=== PATIENT | male | born 1940 | race Caucasian/White ===

== ENCOUNTER 2022-02-01 07:29 | Day surgery (SDC) | payer MEDICARE ==
[~2022-02-01 07:29] MED LIST: Lactated Ringers 1,000 ML IV SCH; Sodium Chloride 0.9% 10 ML Syringe FLUSH PRN
[2022-02-01] MEDS ORDERED: Propofol 200 MG/20 ML SDV IV ONE (07:30)
[2022-02-01 08:05] VITALS: PULSE 54
[2022-02-01 09:51] VITALS: BP 157/71
== END 2022-02-01 09:45 | disposition home or self-care (01) ==
LOC: FB.SDS 07:29
PROVIDERS: ATTEND Surgery
DX: Z12.11 Encounter for screening for malignant neoplasm of colon (principal); D12.6 Benign neoplasm of colon, unspecified; K57.30 Diverticulosis of large intestine without perforation or abscess without bleeding; Z86.010 Personal history of colon polyps
CPT/HCPCS: 00812-QZ; 88305; J2704; J7120

== ENCOUNTER 2022-02-03 05:35 | Emergency (ER) | payer MEDICARE ==
[2022-02-03] MEDS ORDERED: Sodium Chloride 0.9% 10 ML Syringe FLUSH PRN (05:58)
[2022-02-03] MEDS ORDERED: Ondansetron 4 MG/2 ML SDV IVPUSH STA (06:07)
[2022-02-03] MEDS ORDERED: Morphine 4 MG/ML VIAL IVPUSH STA (06:07)
[2022-02-03] MEDS ORDERED: Sodium Chloride 0.9% 1,000 ML IV SCH ×2 (06:15→08:30)
[2022-02-03] MEDS ORDERED: Iopamidol 755 Mg/ML 100 ML Bottle IV ONE (06:36)
[2022-02-03 06:44] VITALS: PULSE 80
[2022-02-03] MEDS ORDERED: Piperacillin/Tazobactam 4.5 GM in Sodium Chloride 0.9% 100 ML IV STA (08:13)
[2022-02-03 13:47] VITALS: BP 150/80
== END 2022-02-03 13:45 ==
LOC: FB.ED 05:35
DX: K80.10 Calculus of gallbladder with chronic cholecystitis without obstruction (principal); K56.609 Unspecified intestinal obstruction, unspecified as to partial versus complete obstruction; E78.00 Pure hypercholesterolemia, unspecified; M10.9 Gout, unspecified; Z79.899 Other long term (current) drug therapy; Z87.891 Personal history of nicotine dependence; Z20.822 Contact with and (suspected) exposure to COVID-19
CPT/HCPCS: 36415; 74177; 80053; 81001; 82150; 83690; 85025; 96361; 96365; 96375; 99284; 99285-25; J2270; J2405; J2543; J3490; J7030; Q9967; U0002

== ENCOUNTER 2024-02-10 19:59 | Emergency (ER) | payer MEDICARE ==
[2024-02-10 20:14] VITALS: BP 200/101; PULSE 90
[2024-02-10] MEDS: Sodium Phosphate,Monobasic/Sodium Phosphate,Dibasic Enema 133 ML Bottle RECTAL ONE (20:40)
[2024-02-10 21:15] LABS: HEMATOCRIT 40.4 % (38.3-50.1); HEMOGLOBIN 13.3 g/dL (12.9-17.7); MEAN CORPUSCULAR HEMOGLOBIN 30.2 pg (27.0-33.3); MEAN CORPUSCULAR HGB CONC 33.1 g/dL (28.7-35.3); MEAN CORPUSCULAR VOLUME 91.5 fL (80.8-98.7); MEAN PLATELET VOLUME 8.5 fL (6.7-11.0); PLATELET COUNT,PLT 223 x10(3)uL (117-477); RED BLOOD CELL COUNT 4.41 x10(6)uL (3.90-5.90); RED CELL DISTRIBUTION WIDTH 13.7 % (12.4-15.0); WHITE BLOOD CELL COUNT,WBC 18.3 x10-3/uL (3.2-10.1)
[2024-02-10 21:21] LABS: LYMPHOCYTES PERCENT MAN 28 % (13-37); MONOCYTES PERCENT MAN 6 % (4-12); SEG NEUTROPHILS PERCENT MAN 66 % (46-82)
[2024-02-10 21:25] LABS: BLOOD UREA NITROGEN,BUN 17 mg/dL (7-18); BUN/CREATININE RATIO 15.5 (9-20); CALCIUM 9.3 mg/dL (8.6-10.2); CARBON DIOXIDE,CO2 25 mmol/L (21-32); CHLORIDE,CL 106 mmol/L (100-110); CREATININE 1.1 mg/dL (0.70-1.30); EST CRCL DRUG DOSING (CG) 48.41 mL/min; ESTIMATED GFR 67 mL/min (>60); GLUCOSE RANDOM 125 mg/dL (80-116); SODIUM,NA 144 mmol/L (135-145)
[2024-02-10 21:31] LABS: A/G RATIO 1.1; ALANINE AMINOTRANSFERASE,ALT 26 U/L (12-36); ALKALINE PHOSPHATASE 120 IU/L (56-112); ASPARTATE AMNIOTRANSFERASE,AST 20 IU/L (5-25); BILIRUBIN TOTAL 0.6 mg/dL (0.1-1.3); PROTEIN TOTAL,TP 7.6 g/dL (6.0-8.0)
[2024-02-11 00:23] LABS: BILIRUBIN,URINE NEGATIVE (NEGATIVE); GLUCOSE,URINE NORMAL (NORMAL); KETONES,URINE 15 mg/dL (NEGATIVE); LEUKOCYTE ESTERASE,URINE NEGATIVE (NEGATIVE); NITRITE,URINE NEGATIVE (NEGATIVE); OCCULT BLOOD,URINE NEGATIVE (NEGATIVE); PROTEIN,URINE NEGATIVE (NEGATIVE); UROBILINOGEN,URINE NORMAL (NEGATIVE)
[2024-02-11 00:27] LABS: APPEARANCE,URINE CLEAR (CLEAR); BACTERIA,URINE OCCASIONAL (NS); COLOR,URINE YELLOW (YELLOW); RBC,URINE 0-5 (0-5); SQUAMOUS EPITHELIAL CELLS,UR RARE (NS,R,O); WBC,URINE 0-5 (0-5)
== END 2024-02-11 00:45 | disposition home or self-care (01) ==
LOC: FB.ED 19:59
DX: K59.09 Other constipation (principal); D72.829 Elevated white blood cell count, unspecified; R33.9 Retention of urine, unspecified; N39.490 Overflow incontinence; E78.00 Pure hypercholesterolemia, unspecified; Z79.899 Other long term (current) drug therapy
CPT/HCPCS: 36415; 74019; 80053; 81001; 85025; 86140; 99283; C1758